=== PATIENT | female | born 1995 | race Caucasian/White ===

== ENCOUNTER 2021-05-22 11:13 | Outpatient (CLI) | payer MEDICAID, SELFPAY ==
--- NOTE | 2021-05-22 11:21 | US_ITS ---
EXAM: US RETROPERITONEAL COMPLETE, RENAL CLINICAL INDICATION: UTI TECHNIQUE: Grayscale and color Doppler sonographic evaluation of the retroperitoneum was performed. This report was created using Spredfast report generation technology. COMPARISON: None. FINDINGS: RIGHT KIDNEY: Unremarkable. No hydronephrosis. No shadowing calculus. No focal lesion. No perinephric collection is demonstrated. LEFT KIDNEY: Unremarkable. No hydronephrosis. No shadowing calculus. No focal lesion. No perinephric collection is demonstrated. BLADDER: No bladder wall thickening or shadowing calculi. US/Kidney and Bladder IMPRESSION: Unremarkable complete retroperitoneal ultrasound. Electronically Signed: Ozzie Cerna MD (Brooks) at 12:41 EST ,
== END 2021-05-22 23:59 | disposition home or self-care (01) ==
PROVIDERS: PCP Nurse Practitioner Family; Referring Provider Urology; Visit Provider Urology
DX: N39.0 Urinary tract infection, site not specified (principal)
CPT/HCPCS: 76770

== ENCOUNTER → 2021-11-01 | Outpatient (CLI) | payer MEDICAID, SELFPAY ==
[2021-11-01 11:25] LABS: Amphetamine Urine VISTA NEGATIVE (<1000 ng/mL); Barbiturate Urine VISTA NEGATIVE (< 200 ng/mL); Benzodiazepine Urine VISTA NEGATIVE (< 200 ng/mL); Cocaine Urine VISTA NEGATIVE (< 300 ng/mL); Ecstacy Urine VISTA NEGATIVE (< 500 ng/mL); Methadone Urine VISTA NEGATIVE (< 300 ng/mL); PCP Urine VISTA NEGATIVE (< 25 ng/mL); THC Urine VISTA NEGATIVE (< 50 ng/mL); Vista UDS pH Range 6
[2021-11-02 21:06] LABS: Chlamydia By Nucleic Acid AMP Negative (Negative)
[2021-11-02 21:52] LABS: Gonococcus By Nucleic Acid AMP Negative (Negative)
[2021-11-03 16:20] LABS: HPV Reflexed? NOT INDICATED
== END | disposition home or self-care (01) ==
LOC: LABSPEC 11-02 07:39
PROVIDERS: PCP Nurse Practitioner Family; Visit Provider Obstetrics & Gynecology
DX: Z34.91 Encounter for supervision of normal pregnancy, unspecified, first trimester (principal); Z3A.08 8 weeks gestation of pregnancy
CPT/HCPCS: 80307; 87086; 87088; 87491; 87591; 88175; G0145

== ENCOUNTER → 2021-11-04 | Outpatient (CLI) | payer MEDICAID, SELFPAY ==
[2021-11-04 11:16] LABS: Absolute Lymphocyte Count 1.07 X10^3/uL (0.83-4.51); Absolute Neutrophil Count 5.5 X10^3/uL (2.0-7.7); Basophil# 0.02 X10^3/uL; Basophil% 0.3 % (0-1); Eosinophil# 0.07 X10^3/uL; Hematocrit 39.2 % (37-47); Hemoglobin 13.4 g/dL (12.0-15.0); Lymphocyte # 1.07 X10^3/ul (0.83-4.51); Mean Corp Hgb Conc 34.2 g/dL (32-36); Mean Corpuscular Volume 87.9 fL (81-99); Mean Platelet Vol. 10.5 fl (6.2-12.0); Monocyte# 0.42 X10^3/uL; Monocyte% 5.9 % (0-10); NRBC Flagged by Analyzer 0 % (0-5); Neutrophil # 5.54 X10^3/uL (2.7-7.7); Neutrophil % 77.5 % (47-70); Platelet Count 185 K/mm3 (150-450); RBC Distribution Width CV 12.5 % (11.6-14.6); RBC Distribution Width SD 40.7 fl (35.1-43.9); Red Blood Count 4.46 M/mm3 (4.2-5.4); White Blood Count 7.1 K/mm3 (4.4-11.0)
[2021-11-06 09:26] LABS: HIV - WCH Non-Reactive (Nonreactive); Hepatitis B Surface Antigen Non-Reactive (Nonreactive); Hepatitis C Antibody Non-Reactive (Nonreactive); Rubella IgG Reactive (Nonreactive); Syphilis Antibodies Non-reactive
== END | disposition home or self-care (01) ==
LOC: LAB 10:22
PROVIDERS: PCP Nurse Practitioner Family; Visit Provider Obstetrics & Gynecology
DX: Z34.91 Encounter for supervision of normal pregnancy, unspecified, first trimester (principal); Z3A.08 8 weeks gestation of pregnancy
CPT/HCPCS: 36415; 85025; 86703; 86762; 86780; 86803; 86850; 86900; 86901; 87340

== ENCOUNTER → 2022-03-23 | Outpatient (CLI) | payer MEDICAID, SELFPAY ==
[2022-03-23 12:39] LABS: Absolute Lymphocyte Count 1.61 X10^3/uL (0.83-4.51); Absolute Neutrophil Count 8.4 X10^3/uL (2.0-7.7); Basophil# 0.04 X10^3/uL; Basophil% 0.4 % (0-1); Eosinophil# 0.13 X10^3/uL; Eosinophils% 1.2 % (0-5); Hematocrit 34.5 % (37-47); Hemoglobin 11.4 g/dL (12.0-15.0); Lymphocyte # 1.61 X10^3/ul (0.83-4.51); Lymphocyte % 14.3 % (19-41); Mean Corpuscular Hgb 30.6 pg (27.0-32.0); Mean Corpuscular Volume 92.5 fL (81-99); Mean Platelet Vol. 10.7 fl (6.2-12.0); Monocyte# 0.92 X10^3/uL; Monocyte% 8.2 % (0-10); NRBC Flagged by Analyzer 0 % (0-5); Neutrophil # 8.38 X10^3/uL (2.7-7.7); Neutrophil % 74.7 % (47-70); Platelet Count 188 K/mm3 (150-450); RBC Distribution Width CV 13.4 % (11.6-14.6); RBC Distribution Width SD 45.1 fl (35.1-43.9); Red Blood Count 3.73 M/mm3 (4.2-5.4); White Blood Count 11.2 K/mm3 (4.4-11.0)
[2022-03-23 13:20] LABS: Glucose Challenge Gest 1H 50g 81 mg/dL (70-140)
== END | disposition home or self-care (01) ==
PROVIDERS: Obstetrics & Gynecology; PCP Nurse Practitioner Family; Visit Provider Obstetrics & Gynecology
DX: O09.90 Supervision of high risk pregnancy, unspecified, unspecified trimester (principal)
CPT/HCPCS: 36415; 82950; 85025

== ENCOUNTER → 2022-05-18 | Outpatient (CLI) | payer MEDICAID, SELFPAY | END | disposition home or self-care (01) | LOC: LABSPEC 12:13 | PROVIDERS: PCP Nurse Practitioner Family; Referring Provider Obstetrics & Gynecology; Visit Provider Obstetrics & Gynecology | DX: O09.90 Supervision of high risk pregnancy, unspecified, unspecified trimester (principal) | CPT/HCPCS: 87077; 87081; 87186 ==

== ENCOUNTER 2022-06-04 06:45 | Inpatient (IN) | payer MEDICAID, SELFPAY ==
[2022-06-04] VITALS (46 sets, daily range): BP systolic 113–141; BP diastolic 65–90; PULSE 75–101; RESP 20; TEMP 36.6–37.4; O2SAT 96–100; BMI 29.4
--- NOTE | 2022-06-04 07:54 | HP.PCM.OB_ITS ---
HPI - General General Date of Admission: 06/04/22 HPI Narrative CANDACE MUKHERJEE, is a 27 F who presents at 39weeks for elective IOL. pt has been experiencing worsening pelvic pain/pressure. denies lof/vb/ctx. good fm. complicated by tobacco use and GBS positive. Maternal Data Information VAISHALI Calculator Estimated Delivery Date Method Current WG Current Estimate 06/09/22 Ultrasound #1 39w 2d Other Estimates 06/09/22 LMP (Certain) 39w 2d PFSH PFSH Home Medications ondansetron 4 mg disintegrating tablet 4 mg PO Q4H PRN nausea and vomiting #60 tabs 11/06/21 [Rx Last Taken 06/03/22 19:00] famotidine 20 mg tablet (Pepcid) 20 mg PO BID heartburn 06/04/22 [History Last Taken 06/03/22 19:00] hydroxyzine HCl 10 mg tablet 10 mg PO PRN PRN Anxiety 06/04/22 [History Last Taken Unknown] vitamins no.85-iron 10 mg-folate no.1 1 mg-dha 200 mg capsule (Prenate Pixie) 1 cap PO DAILY 06/04/22 [History Last Taken 06/03/22 19:00] Allergy/AdvReac Type Severity Reaction Status Date / Time No Known Allergies Allergy Verified 06/04/22 07:27 Family History Father Lung cancer Mother Heart disease Social History adopted: No household members: significant other and children housing: other number of children: 1 current occupational status: employed current occupation: [employer] current occupational exposures/hazards: Yes (COVID) pets and animals: Yes pets and animals: dog(s) history of recent travel: Yes ([facility]) out of state: Yes out of country: No sexually active: Yes Smoking Status: Light Smoker (<10/day) quit status: considering quitting alcohol intake: former details: social once in awile substance use type: does not use well-balanced diet: daily or most days caffeine: No eating out: 1-3 times/week during the past year weight has: remained stable what type of physical activity do you participate in: walking frequency: daily duration: > 90 minutes/day son/adventist: None seatbelt use: always do you feel safe at home: Yes additional social history: Nova Anders History 4 Elective abortions Hx Para 1 Spontaneous abortions 2 Hx # Term Pregnancies Ectopic pregnancies Hx # Pregnancies Multiple births # of living children 1 Past Pregnancies Del. Date Name GA/Weeks Outcome Route Bth Weight Gen Labor Lgth Anesthesia Del Locatn Provider FOB Unknown 07/28/16 Jose 38 live - full term 7#7oz M lynn 5 HRs epidural Teo Vickers - Underwriting Sales Representative Mustapha Yi Visit Details Expected Delivery Route/Plan Labor Preferences- CB/BF classes: information provided labor support person: Shaw labor intervention preferences: [] pain management options preferred: [] cut cord/dad catch: [] : [] PP control planned: [] discussed possible routes of delivery and associated risks: [] special requests: [] Plans Covid status: unvaccinated Flu vaccine: declined Tdap vaccine: declined Rhogam: na LARC form signed: [] movement and labor precautions reviewed. Problem list reviewed and updated with the most current plan of care details and appropriate orders placed. Relevant counseling for the gestational age provided. Continue routine care and follow up unless otherwise noted in visit notes/problem list details OB Flowsheet Initial Weight: Not Recorded Date -?-?-?-?-?-?-?-?--?-?-?-?- EGA Weight BP Urine Prot -?-?-?-?-?-?-?-?-?-?-?-?- Glucose FHR FuHt Pres Dilation -?-?-?-?-?-?-?-?-?-?-?-?- Effaced St Visit Note 11/01/21 -?-?-?-?-?-?-?-?-?-?-?-?- 8w 4d 154 lb 112/70 -?-?-?-?-?-?-?-?-?-?-?-?- 171 -?-?-?-?-?-?-?-?-?-?-?-?- JV- CRL consiste nt with LMP. 12/07/21 -?-?-?-?-?-?-?-?-?-?-?-?- 13w 5d 156 lb 102/74 Negative -?-?-?-?--?-?-?-?-?-?-?-?- Negative 155 -?-?-?-?-?-?-?-?-?-?-?-?- SM- no vb lof CO LP today JOSELYN 1 12/29/21 -?-?-?-?-?-?-?-?-?-?-?-?- 16w 6d 160 lb 115/77 Negative -?-?-?-?-?-?-?-?-?-?-?-?- Negative 145 -?-?-?-?-?-?-?-?-?-?-?-?- JV- no lof, vagi nal bleeding. some cramping and some movement. anatomy ultrasound ordered. 01/26/22 -?-?-?-?-?-?-?-?-?-?-?-?- 20w 6d 163 lb 6 oz 111/74 Nega tive -?-?-?-?-?-?-?-?-?-?-?-?- Negative 145 -?-?-?-?-?-?-?-?-?-?-?-?- SM- no vb lof go od fm no regular ctx 02/23/22 -?-?-?-?-?-?-?-?-?-?-?-?- 24w 6d 171 lb 111/75 Negative -?-?-?-?-?-?-?-?-?-?-?-?- Negative 145 25 -?-?-?-?-?-?-?-?-?-?-?-?- SM- no vb lof go od fm no regular ctx 03/23/22 -?-?-?-?-?-?-?-?-?-?-?-?- 28w 6d 176 lb 2 oz 122/76 Nega tive -?-?-?-?-?-?-?-?-?-?-?-?- Negative 135 28 -?-?-?-?-?-?-?-?-?-?-?-?- JV- no lof, vagi nal bleeding, or dec fm. gct today. no complaints. 04/12/22 -?-?-?-?-?-?-?-?-?-?-?-?- 31w 5d 178 lb 118/70 -?-?-?-?-?-?-?-?-?-?-?-?- 120 32 -?-?-?-?-?-?-?-?-?-?-?-?- LC- no lof/vb/ct x. good fm. very weepy today. not sleeping well. comfort techniques recommended. to trial benadryl for sleep. neg glu/protein 04/20/22 -?-?-?-?-?-?-?-?-?-?-?-?- 32w 6d 181 lb 8 oz 119/79 Nega tive -?-?-?-?-?-?-?-?-?-?-?-?- Negative 135 32 -?-?-?-?-?-?-?-?-?-?-?-?- JV- pt complains of indigestion and wants a script for a small PNV. rx for pepcid and pixie ordered. 05/04/22 -?-?-?-?-?-?-?-?-?-?-?-?- 34w 6d 185 lb 132/82 Negative -?-?-?-?-?-?-?-?-?-?-?-?- Negative 140 35 -?-?-?-?-?-?-?-?-?-?-?-?- SM- no vb lof go od fm no regular ctx 05/18/22 -?-?-?-?-?-?-?-?-?-?-?-?- 36w 6d 186 lb 4 oz 136/83 Nega tive -?-?-?-?-?-?-?-?-?-?-?-?- Negative 145 37 Cephalic 1 -?-?-?-?-?-?-?-?-?-?-?-?- 40 -2 JV- GBS co llected. labor precautions discussed. no lof, vaginal bleeding, or dec fm. pt unsure if wants letter carrier for delivery. will need to ask her during labor if prefers doc only 05/25/22 -?-?-?-?-?-?-?-?-?-?-?-?- 37w 6d 187 lb 125/80 Negative -?-?-?-?-?-?-?-?-?-?-?-?- Negative 145 37 Cephalic 1 -?-?-?-?-?-?-?-?-?-?-?-?- SM- no vb lof go od fm no regular ctx 06/01/22 -?-?-?-?-?-?-?-?-?-?-?--?- 38w 6d 190 lb 133/83 Negative -?-?-?-?-?-?-?-?-?-?-?-?- Negative 145 38 Cephalic 1 -?-?-?-?-?-?-?-?-?-?-?-?- 40 -2 JV- no lof , vaginal bleeding, or dec fm. pt is tearful asking for IOL due to severe pelvic pain and history of fast labor, lives an hour away NST FHR Rate Baby A Baseline: 145 Variability:: Minimal Accelerations:: 15 x 15 Decelerations:: None NST Reactive:: Yes FHR Category:: Category I Uterine Activity:: irregular ROS Cardiovascular Cardiovascular: Denies abdominal pain, chest pain, diaphoresis or dyspnea Genitourinary Genitourinary: Reports change in urinary stream Musculoskeletal Musculoskeletal: Reports none Integumentary Integumentary: Reports none Neurologic Neurologic: Reports none Psychiatric Psychiatric: Reports none Endocrine Endocrinology: Reports none Hematologic/Lymphatic Hematologic/Lymphatic: Reports none Allergic/Immunologic Allergic/Immunologic: Reports none Vital Signs Vital Signs Vital Signs: Weight Weight: 188 lb Body Mass Index (BMI) 29.4 Physical Exam Const alert, oriented x3 and no apparent distress General Appearance: cooperative, comfortable and well kempt Orientation / Consciousness: awake and oriented to person Exam Limitations: no limitations HEENT normocephalic Neck full ROM Chest inspection of chest normal Resp normal respiratory effort, normal air movement and no retractions Effort and Inspection: able to speak in complete sentences and symmetric chest movement Cardio regular rate Peripheral Pulses: pulses 2+ throughout GI normal to inspection, nondistended, normoactive bowel sounds Inspection: gravid appearance of the vagina normal External Female Exam: normal appearance of the urethra; Negative for external lesion Manual OB Exam: estimated gestational size appropriate and presentation cephalic Uterus Palpation: Negative for uterus tender Extremity normal to inspection Skin no rashes or lesions noted Psych Activity / Motor Behavior: appropriate eye contact Speech: normal speech Labs Labs Labs: Blood Type O POSITIVE Antibody Screen NEGATIVE Hct 34.5 % (37-47) L Hgb 11.4 g/dL (12.0-15.0) L Syphilis Total Ab Non-reactive Rubella IgG Antibody Reactive (Nonreactive) Hep Bs Antigen Non-Reactive (Nonreactive) Chlamydia DNA (JAM) Negative (Negative) Neisseria gonorrhoeae DNA (JAM) Negative (Negative) HIV 1&2 Antibody Non-Reactive (Nonreactive) Glucose 1 Hr 50 gm 81 mg/dL (70-140) Assessment & Plan (1) Elective induction of labor planned: COMMENT: pitocin and harvey bulb EFW 7.5lbs PLAN: risk and benefits reviewed. pt agrees with pitocin/harvey bulb for IOL. cat 1 tracing reassuring maternal/ status -routine admission orders -pitocin per protocol -GBS prophlaxis . NKA. will use PCN. Dr. Farley updated on admission, exam and POC and agrees with above. -co-management for IOL. (2) Positive GBS test: COMMENT: PCN in labor (3) Tobacco abuse: COMMENT: smokes 1-2 cigarettes per day, encourage cessation (4) Supervision of high risk , antepartum: COMMENT: PRR , VAISHALI 06/19/22 girl [place] (5) : QUALIFIERS: Weeks of gestation: 38 weeks Qualified Code(s): Z3A.38 - 38 weeks gestation of COMMENT: nl anatomy, declined NIPT & Carrier testing, declined afp screen. nl 1 hr GCT, declined TDAP
[2022-06-04 08:19] LABS: Absolute Lymphocyte Count 1.54 X10^3/uL (0.83-4.51); Basophil# 0.04 X10^3/uL; Basophil% 0.4 % (0-1); Eosinophil# 0.11 X10^3/uL; Eosinophils% 1.1 % (0-5); Hematocrit 36.4 % (37-47); Hemoglobin 12.1 g/dL (12.0-15.0); Lymphocyte # 1.54 X10^3/ul (0.83-4.51); Mean Corp Hgb Conc 33.2 g/dL (32-36); Mean Corpuscular Hgb 30.3 pg (27.0-32.0); Mean Platelet Vol. 10.8 fl (6.2-12.0); Monocyte# 0.81 X10^3/uL; Monocyte% 8.4 % (0-10); NRBC Flagged by Analyzer 0 % (0-5); Neutrophil # 7.01 X10^3/uL (2.7-7.7); Neutrophil % 72.6 % (47-70); Platelet Count 152 K/mm3 (150-450); RBC Distribution Width CV 13.5 % (11.6-14.6); RBC Distribution Width SD 44.6 fl (35.1-43.9); White Blood Count 9.7 K/mm3 (4.4-11.0)
[2022-06-04] MEDS: Oxytocin 15 Units/NS 250ml 15 UNITS/250 ML IV.SOLN 2 UNITS IV (08:57)
[2022-06-04] MEDS: Lactated Ringers 1,000 ML 50 ML IV ×2 (08:57→12:52)
[2022-06-04] MEDS: 0.9% Normal Saline Single 100 ML IV.SOLN. INTRA-UTER (08:58)
[2022-06-04] MEDS: Penicillin G 3,000,000 Units 50 ML 100 UNITS IV (12:46)
[2022-06-04] MEDS: LACTATED RINGERS 500 ML 999 ML IV (13:54)
[2022-06-04] MEDS: fentaNYL-bupivacaine (epidural) 100 ML BAG EPIDURAL (14:49)
[2022-06-04] MEDS: Oxytocin 15 Units/NS 250ml 15 UNITS/250 ML IV.SOLN 167 UNITS IV (17:37)
--- NOTE | 2022-06-04 17:44 | EX.PCM.OBRPT ---
Assessment & Plan (1) (spontaneous vaginal delivery): COMMENT: elective IOL at 39, , girl Ana. PLAN: s/p PPD # 0 1. routine post delivery care 2. O positive- cord blood sent 3. rh positive 4. rubella immune (2) Tobacco abuse: COMMENT: smokes 1-2 cigarettes per day, encourage cessation (3) Positive GBS test: COMMENT: PCN in labor-adequately treated. resolved Maternal Data Information VAISHALI Calculator Estimated Delivery Date Method Current WG Current Estimate 06/09/22 Ultrasound #1 39w 2d Other Estimates 06/09/22 LMP (Certain) 39w 2d Vaginal Delivery Maternal Presentation Maternal Presentation: Elective Induction Type of Induction: Pitocin and Brown Bulb Operative Information Date of Procedure: 06/04/22 Pre-Operative Diagnosis: Post-Operative Diagnosis: Surgery / Procedure Performed: Spontaneous Vaginal Delivery Type of Anesthesia: Epidural Drain: Brown to straight drain Estimated Blood Loss: 150 Time of Delivery: 17:32 Findings Description of Procedure: Patient began pushing and delivered the head in the SHAKA presentation with compound hand presentation. The head was delivered atraumatically and arm was supported over the perineum. The anterior and posterior shoulders delivered without complication followed by the rest of the and the infant was placed on the maternal abdomen. Delayed cord clamping was employed for approximately 60 seconds. Cord was clamped and cut and gentle traction was applied to the cord and the placenta delivered spontaneously immediately following it was noted to be intact with three-vessel cord. The perineum and vagina were inspected and noted to have no laceration. EBL was 150cc. Patient and tolerated delivery well entered recovery phase bonding skin to skin. Presentation: Vertex Amniotic Membrane Rupture Type: Artificial Amniotic Fluid Description: Clear Cord Vessel Description: 3 Vessels Cord Entanglement: None Infant A Gender: Female (1 minute): 9 (5 minute): 9 Delayed Cord Clamping: Yes Post Vaginal Delivery Medications Given After Delivery: IV Pitocin Episiotomy Description: None Laceration: None Multi Select Codes Addendum Addendum: ATTN MONA: PAULINE delivery. global vaginal package
--- NOTE | 2022-06-04 19:01 | DCINST_ITS ---
Discharge Instructions Diet Discharge Diet: No restrictions Activity Discharge Activity: May Not Drive and May Shower May resume sexual activity in: 6 weeks Weight Bearing Status: Full weight bearing Dressing / Incision Call your doctor if your incision/area has: Sudden Increased Bleeding, Increased Pain/ Swelling and Foul Smelling Discharge Call your doctor if you observe: Fever of 101 or Higher, Numbness or Tingling, Change in Color, Inability to urinate, Inability to have a bowel movement, Using more than 1 pad per hour, Shortness of breath, Dizziness, Fainting spells, Chest pain, Calf discomfort and Uncontrolled pain Follow Up Care Please Follow Up With: Yu Hernández CNM When: 6 weeks , please call office to make an appointment. Congratulations on the of your baby girl, Ana! Test Results: Test results from this visit will be discussed in further detail at your follow- up appointment, if applicable. Discharge Plan Admission Admit Date/Time: 06/04/22 06:45 Attending Provider: Heather Farley Primary Care Provider: Guadalupe Castillo NP Discharge Orders/Prescriptions Prescriptions: No Action famotidine [Pepcid] 20 mg tablet 20 mg PO BID Prenate Pixie 10 mg iron- 1 mg-200 mg capsule 1 cap PO DAILY hydroxyzine HCl 10 mg tablet 10 mg PO PRN PRN (Reason: Anxiety) Label Comments: TAKE ONE TABLET BY MOUTH DAILY NEEDED FOR ANXIETY ondansetron 4 mg tablet,disintegrating 4 mg PO Q4H PRN (Reason: nausea and vomiting) Qty: 60 2RF Referrals / Follow Up: Guadalupe Castillo NP, [employer] SET UP OPERATOR-C [Primary Care Provider] - Disposition Disposition (needs filled in before D/C Order can be placed): Home, Self Care
--- NOTE | 2022-06-04 21:50 | NURSING ---
RN noted urinary catheter in place upon assuming care of pt at 1909. Prior RN, Eileen Chappell, reported urinary catheter placed by her during the 1500 hour after pt's epidural catheter placed, but this RN notes no documentation of urinary catheter placement. This RN removed indwelling urinary catheter at 2054 while pt sitting up in bed. Pt tolerated well.
[2022-06-04] MEDS: Acetaminophen 500 MG Tablet 1000 MG PO (23:19)
[2022-06-05] VITALS (7 sets, daily range): BP systolic 127–152; BP diastolic 86–100; PULSE 72–94; RESP 16–18; TEMP 36.7–36.9; O2SAT 98–100
--- NOTE | 2022-06-05 03:28 | NURSING ---
pt reports feeling stressed about infant at this time
--- NOTE | 2022-06-05 04:10 | NURSING ---
pt tearful at this time regarding elevated BPs and stating she just feels very anxious right now with and because she just wants a happy baby and a happy mom, pt reports taking PRN anti anxiety medication but that it knocks her out and that she does not want to take at this time due to caring for , RN provided comfort to pt at this time and discussed how pt would like to proceed with feeding at this time, pt reports she would like to formula feed now and start pumping at home, RN educates pt on need to continuously stimulate breasts to keep breastmilk supply and encourages pt to use alternative feeding methods such as syringes or harvey cup, pt states she would like to use nipple on bottle or syringes, RN to huddle with pt once labs have resulted in order to provide further comfort to pt
[2022-06-05 04:21] LABS: Hematocrit 37.1 % (37-47); Hemoglobin 12.2 g/dL (12.0-15.0); Mean Corp Hgb Conc 32.9 g/dL (32-36); Mean Corpuscular Volume 91.4 fL (81-99); Mean Platelet Vol. 10.9 fl (6.2-12.0); Platelet Count 150 K/mm3 (150-450); RBC Distribution Width CV 13.6 % (11.6-14.6); RBC Distribution Width SD 45.5 fl (35.1-43.9); Red Blood Count 4.06 M/mm3 (4.2-5.4); White Blood Count 15.4 K/mm3 (4.4-11.0)
[2022-06-05 04:36] LABS: AST(SGOT) 17 U/L (15-37); Alanine Aminotransfer ALT/SGPT 15 U/L (13-56); Creatinine, Serum 0.68 mg/dL (0.55-1.02); EST Glomerular Filtration Rate 108 mL/min (>60); Est Glom Filt Rate - Afr Amer 131 mL/min (>60); Estimated Creatinine Clearance 118.71 ml/min; Uric Acid 4.2 mg/dL (2.6-6.0)
[2022-06-05 04:45] LABS: ALB/GLOB Ratio 0.7 RATIO (0.9-2.4); AST(SGOT) 22 U/L (15-37); Alanine Aminotransfer ALT/SGPT 17 U/L (13-56); Albumin, Serum 2.3 g/dL (3.2-5.0); Alkaline Phosphatase 110 U/L (45-117); Anion Gap 6 (5-15); BUN 7 mg/dL (7-18); BUN/Creat Ratio 10.5 RATIO (10-20); Calcium,Total 8.9 mg/dL (8.5-10.1); Chloride 107 mmol/L (98-107); Creatinine, Serum 0.66 mg/dL (0.55-1.02); EST Glomerular Filtration Rate 112 mL/min (>60); Est Glom Filt Rate - Afr Amer 135 mL/min (>60); Estimated Creatinine Clearance 122.31 ml/min; Globulin 3.4 g/dL (2.2-4.2); Glucose 98 mg/dL (74-106); Potassium 3.5 mmol/L (3.5-5.1); Protein, Total 5.7 g/dL (6.4-8.2); Sodium Level 140 mmol/L (136-145)
--- NOTE | 2022-06-05 06:05 | NURSING ---
first BP elevated due to t sitting on edge of bed and talking through BP measurement, second BP taken with pt resting back in bed and remaining quiet, RN to continue to monitor
--- NOTE | 2022-06-05 07:30 | NURSING ---
report given to Candi Lucio RN who is assuming care of pt at this time
--- NOTE | 2022-06-05 07:47 | PN.OBGYN_ITS ---
Subjective Subjective Patient doing well without complaints. Tolerating PO. Ambulating and voiding without difficulty. Feeding well. Denies chest pain, shortness of breath, calf pain/swelling, fevers, chills, lightheadedness. Note elevated BP earlier but last reading WNL Objective Data Objective Data Vital Signs: Vital Signs Temp Pulse Resp BP Pulse Ox O2 Del Method 98.0 F 75 18 149/100 H 98 Room Air 06/05/22 03:27 06/05/22 06:05 06/05/22 03:27 06/05/22 06:05 06/05/22 03:27 06/05/22 06:05 Oxygen Delivery Method Room Air Weight: 188 lb Body Mass Index (BMI) 29.4 Intake & Output: Intake and Output for Last 24 Hours 06/03/22 06/04/22 06/05/22 23:59 23:59 23:59 Intake Total 1234.50 / 1234.50 Output Total 1450 / 1450 900 / 900 Balance -215.50 / -215.50 -900 / -900 Lab / Micro Data Result Diagrams: 06/05/22 04:08 06/05/22 04:08 Labs: Laboratory Results - last 24 hr 06/04/22 07:55: WBC 9.7, RBC 4.00 L, Hgb 12.1, Hct 36.4 L, MCV 91.0, MCH 30.3, MCHC 33.2, RDW Std Deviation 44.6 H, RDW Coeff of Segundo 13.5, Plt Count 152, MPV 10.8, Immature Gran % (Auto) 1.500 H, Neut % (Auto) 72.6 H, Lymph % (Auto) 16.0 L, [place] % (Auto) 8.4, Eos % (Auto) 1.1, Baso % (Auto) 0.4, Absolute Neuts (auto) 7.0, Absolute Lymphs (auto) 1.54, Nucleated RBC % 0 06/04/22 07:55: Blood Type O POSITIVE, Antibody Screen NEGATIVE 06/05/22 04:08: WBC 15.4 H, RBC 4.06 L, Hgb 12.2, Hct 37.1, MCV 91.4, MCH 30.0, MCHC 32.9, RDW Std Deviation 45.5 H, RDW Coeff of Segundo 13.6, Plt Count 150, MPV 10.9 06/05/22 04:08: Creatinine 0.68, Estim Creat Clear Calc 118.71, Est GFR (MDRD) Af Amer 131, Est GFR (MDRD) Non-Af 108, Uric Acid 4.2, AST 17, ALT 15 06/05/22 04:08: Sodium 140, Potassium 3.5, Chloride 107, Carbon Dioxide 27.0, Anion Gap 6, BUN 7, Creatinine 0.66, Estim Creat Clear Calc 122.31, Est GFR (MDRD) Af Amer 135, Est GFR (MDRD) Non-Af 112, BUN/Creatinine Ratio 10.5, Glucose 98, Calcium 8.9, Total Bilirubin 0.40, AST 22, ALT 17, Alkaline Phosphatase 110, Total Protein 5.7 L, Albumin 2.3 L, Globulin 3.4, Albumin/Globulin Ratio 0.7 L Physical Exam Const alert and oriented x3 HEENT normocephalic Eyes PERRL Neck full ROM Resp normal respiratory effort GI soft to palpation GI Narrative: FF below U Assessment & Plan (1) (spontaneous vaginal delivery): COMMENT: elective IOL at 39, , girl Ana. LC (2) Elevated blood pressure reading: PLAN: Plan s/p PPD # 1 1. routine post delivery care 2. breast feeding- support given 3. rh positive 4. rubella immune 5. continue to monitor BP. Patient is asymptomatic 6. Plans home tonight
[2022-06-05] MEDS: Acetaminophen 500 MG Tablet 1000 MG PO (08:51)
[2022-06-05 09:20] LABS: Protein, Urine (Random) 190.6 mg/dL (<11.9); Protein:Creat Ratio 7717 mg/g CRE (0-200)
[2022-06-05] MEDS: NIFEdipine 30 MG Tablet PO (10:14)
--- NOTE | 2022-06-05 16:00 | CASEMGMT ---
Social Work Brief Assessment Labor and Delivery Unit Patient Address: [address] [place] [address] [address], [place] [address] (mailing address) Phone number: [phone] Date of Referral/Notification: 06/04/2022 Time of Referral: [phone] Referred By: Yu Hernández CNM Date of Intervention: 06/05/2022 Time of Intervention: Approximately [id number] Reason for Referral: Maternal history of anxiety Informant: Medical record and mother of baby (MOB) Laura Spencer History: BIANCA is a 27-year-old single female, involved with the father of baby (FOB) Shaw Topete for the last 3 years. On admission MOB denied any type of masses violence or safety concerns in the relationship. MOB also denied during this social work intervention. is the first child for FOB and the second for BIANCA. BIANCA's minor children include Jose (07/28/2016), and baby girl Ana (06/04/2022). Jose's father is minimally involved however does sometimes pay child support. BIANCA is 4, para 1 now 2 after delivering Ana. care was good starting at 8 weeks. Baby girl Ana delivered at 8 pounds 4 ounces. Apgars 9 and 9 at 1 and 5 minutes of life respectively. BIANCA reports was working during as an [employer] at [employer] but did quit during due to the challenges of the job and wanting to ensure a safe . BIANCA does plan to return to this appointment after about 8 weeks. 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 BIANCA reports history of anxiety and some depression which reportedly did not last too long. BIANCA has been treated in the past with Vistaril as needed and reports this medication does work. BIANCA denies any other mental health history no reports of any SI or HI. No reports of any type of substance use history. Maternal drug screen was negative on 11/01/2021. BIANCA reports primary support is the FOB, ZAHIDA's father, and a few friends. BIANCA has a history of helping grow although not currently and still considers the prior help me grow worker Tania a good support. Active with WIC and job and family services. Denies any history of children services involvement and no legal history. Assessment: Met with MOB in room, introducing to self and social work well. ZAHIDA was in and out of sleep, and when sleeping appeared to be sleeping soundly as evidenced by deep sonorous sounds. Did handwrite out questions about safety and domestic violence, to which MOB denied any concerns. MOB reports to have necessary supplies to care for the infant at home including safe sleep space and car seat. Denies any concerns with housing, living environment, utilities, food security or transportation. MOB reports she is going to be using her tax return to help pay for bills during maternity leave. Also reports that ZAHIDA's job is steady with income. MOB reports to feel a delatorre with the , reporting that it is coming along but admits this has been a worry because MOB feels so connected to her older son. MOB teary-eyed when talking about missing her son. Reviewed mood and anxiety disorders, risk factors, and importance of seeking out help and support should MOB start feeling symptoms and/or feelings of distress. MOB expressed understanding. Provided MOB with resources on mood and anxiety disorders and supports that MOB can tap into after discharge. Resources for [facility] also provided. There have been no concerns voiced by staff regarding parent-child interactions or bonding. MOB held good eye contact, was receptive to conversation and engaging in conversation. Plan: MOB and infant will discharge home when ready, with resources provided for their home area as well as on mood and anxiety disorders. No further needs requested or indicated. -LANA Wade MSW *This note was generated with [employer] dictation software. It may contain incorrect words, spelling, and punctuation that were not noted in review of the chart prior to signing*
== END 2022-06-05 19:20 | disposition home or self-care (01) | DRG 560 ==
PROVIDERS: Registered Nurse; Admitting Provider Obstetrics & Gynecology; PCP Nurse Practitioner Family; Visit Provider Obstetrics & Gynecology
DX: O99.824 Streptococcus B carrier state complicating childbirth (principal); Z37.0 Single live birth; R03.0 Elevated blood-pressure reading, without diagnosis of hypertension; F17.210 Nicotine dependence, cigarettes, uncomplicated; O99.334 Smoking (tobacco) complicating childbirth; O99.892 Other specified diseases and conditions complicating childbirth; Z3A.39 39 weeks gestation of pregnancy
CPT/HCPCS: 59025; 59050; 80053; 82565; 82570; 84156; 84450; 84460; 84550; 85025; 85027; 86850; 86900; 86901; 99221; J7120; G0378

== ENCOUNTER → 2022-08-03 | Outpatient (CLI) | payer MEDICAID, SELFPAY ==
[2022-08-15 06:09] LABS: HPV APTIMA, High Risk Negative (Negative)
[2022-08-17 20:45] LABS: HPV Reflexed? YES, CHARGE PATIENT
== END | disposition home or self-care (01) ==
LOC: LABSPEC 16:52
PROVIDERS: Referring Provider Advanced Practice Midwife; Visit Provider Advanced Practice Midwife
DX: Z12.4 Encounter for screening for malignant neoplasm of cervix (principal); N87.0 Mild cervical dysplasia
CPT/HCPCS: 87624; 88175; G0145